=== PATIENT | male | born 1990 | race Caucasian/White ===

== ENCOUNTER 2016-11-06 08:55 | Emergency (ER) | payer OTHER ==
--- NOTE | ~2016-11-06 | CR72 ---
[facility] A Service of [facility] RADIOLOGY TEXT RESULTS PATIENT: KAREEM MADSEN LOCATION: [facility] : 90 UNIT #: [id number] AGE: [address]: Felix Gibson MD SEX: M ORDER DR: [id number] [facility] [address] [place], [place] [address] [id number] P MR#: [id number] Acc #: [id number] NAME: KAREEM MADSEN : 1990 SEX: M STUDY DATE/TIME: 11/06/2016 6:36 UNIT: [facility] ROOM: STUDY DESCRIPTION: CR Chest Single View Portable Ordering Physician: Ed Doctor [id number] Loida hoda MEDICAL IMAGING REPORT This report is preliminary unless electronic signature is present EXAM Portable chest INDICATION Recurring chest pain and shortness of air which is worse this morning. FINDINGS A portable view of the chest was obtained. The heart size and vascularity are normal. The lungs are clear. The bones are unremarkable. IMPRESSION No active disease. Dictated by... Jorge Medel M.D. THIS IS AN ELECTRONICALLY VERIFIED REPORT Jorge Medel M.D. at 11/06/2016 11:44 AM Andrew TD: 11/06/2016 07:54 JOB #: [id number] MEDICAL IMAGING REPORT Page 1 of 1 COPY
--- NOTE | ~2016-11-06 | EKG ---
PATIENT: KAREEM MADSEN UNIT #: [id number] Ventricular Rate: 75 BPM Atrial Rate: 75 BPM P-R Interval: 152 ms QRS Duration: 92 ms Q-T Interval: 370 ms QTC Calculation(Bezet): 413 ms P [place]: 39 degrees Calculated R [place]: 45 degrees Calculated T [place]: 36 degrees Diagnosis Line: Normal sinus rhythm Diagnosis Line: Normal ECG Diagnosis Line: Diagnosis Line: Confirmed by AINSLEY BETTENCOURT MD ([id number]) on 11/06/2016 Diagnosis Line: 10:16:26 PM INTERPRETING MD: RUT HENDERSON
[2016-11-06 08:51] LABS: BASOPHIL# 0.1 X10e3 (0-0.3); BASOPHIL% 0.6 % (0-2.5); EOSINOPHIL# 0.2 X10e3 (0-0.7); EOSINOPHIL% 1.8 % (0.0-7.0); HEMATOCRIT 43.2 % (38.0-50.0); HEMOGLOBIN 14.1 gm/dL (13.0-16.0); LYMPHOCYTE# 2.2 X10e3 (1.0-3.5); LYMPHOCYTE% 22.5 % (17.0-45.0); MEAN CORPUSCULAR HEMOGLOBIN 27.7 PG (28-34); MEAN CORPUSCULAR HGB CONC 32.6 g/dL (30-36); MEAN PLATELET VOLUME 7.4 FL (6.5-11.5); MONOCYTE% 9.7 % (3.0-12.0); NEUTROPHIL# 6.4 X10e3 (1.5-7.1); NEUTROPHIL% 65.4 % (40-75); PLATELET COUNT 315 X10e3 (140-420); RED BLOOD COUNT 5.09 X10e (3.90-5.60); RED CELL DISTRIBUTION WIDTH 13.4 % (11.0-15.5); WHITE BLOOD COUNT 9.8 X10e3 (4.0-10.5)
[2016-11-06 08:52] LABS: DIFF IND NO
[2016-11-06 09:18] LABS: ALBUMIN SERUM 4.6 g/dL (3.5-5.0); BILIRUBIN, DIRECT 0.1 mg/dL (0.0-0.2); BILIRUBIN,INDIRECT 0.8 mg/dL (0.0-0.9); BILIRUBIN,TOTAL 0.9 mg/dL (0.2-2.0); BUN/CREATININE RATIO 13.33; CALCIUM SERUM 9.4 mg/dL (8.4-10.2); CREATININE SERUM 0.9 mg/dL (0.6-1.4); GLOM FILT RATE Estimated 117.5 mL/min (>60); POTASSIUM 3.7 mmol/L (3.5-5.1)
== END 2016-11-06 09:43 | disposition home or self-care (01) ==
LOC: CED 08:55
DX: M54.6 Pain in thoracic spine (principal); J45.909 Unspecified asthma, uncomplicated
CPT/HCPCS: 36415; 71010; 80048; 80076; 85025; 93005; 99284

== ENCOUNTER 2016-12-15 04:45 | Emergency (ER) | payer OTHER ==
--- NOTE | ~2016-12-15 | EKG ---
PATIENT: KAREEM COULTER UNIT #: [id number] Ventricular Rate: 77 BPM Atrial Rate: 77 BPM P-R Interval: 156 ms QRS Duration: 86 ms Q-T Interval: 366 ms QTC Calculation(Bezet): 414 ms P [place]: 59 degrees Calculated R [place]: 53 degrees Calculated T [place]: 47 degrees Diagnosis Line: Normal sinus rhythm Diagnosis Line: Normal ECG Diagnosis Line: When compared with ECG of 06-NOV-2016 06:19, Diagnosis Line: No significant change was found Diagnosis Line: Confirmed by GEORGIA HAGER MD ([id number]) on Diagnosis Line: 12/15/2016 4:31:20 PM INTERPRETING MD: ALLEY HENDERSON
--- NOTE | ~2016-12-15 | CR72 ---
[facility] A Service of [facility] RADIOLOGY TEXT RESULTS PATIENT: KAREEM COULTER LOCATION: [facility] : 90 UNIT #: [id number] AGE: [address]: Daniel Reynoso DO SEX: M ORDER DR: [id number] [facility] [address] [place], [place] [address] [id number] E MR#: [id number] Acc #: [id number] NAME: KAREEM COULTER : 1990 SEX: M STUDY DATE/TIME: 12/15/2016 6:45 UNIT: [facility] ROOM: STUDY DESCRIPTION: CR Chest Single View Portable Attending Physician: Daniel Reynoso D.O. Ordering Physician: Daniel Reynoso D.O. Primary Care Physician: No Primary Care Physician MEDICAL IMAGING REPORT This report is preliminary unless electronic signature is present EXAM Portable chest, 12/15/2016. HISTORY 26-year-old male with shortness of air and chest pain beginning last night. COMPARISON Chest, 11/06/2016. FINDINGS Frontal chest demonstrates clear lungs. No pleural effusion or pneumothorax. Heart size and mediastinum are within normal limits. Pulmonary vasculature unremarkable. IMPRESSION No acute cardiopulmonary findings. Dictated by... Graham Herrera M.D. THIS IS AN ELECTRONICALLY VERIFIED REPORT Graham Herrera M.D. at 12/16/2016 6:19 AM BARRON/liliana TD: 12/15/2016 09:25 JOB #: [id number] MEDICAL IMAGING REPORT Page 1 of 1 COPY
--- NOTE | ~2016-12-15 | CT71 ---
[facility] A Service of [facility] RADIOLOGY TEXT RESULTS PATIENT: KAREEM COULTER LOCATION: [facility] : 89 UNIT #: [id number] AGE: [address]: Daniel Reynoso DO SEX: M ORDER DR: [id number] [place] [id number] [facility]. [place], [place] [address] [id number] E MR#: [id number] Acc #: [id number] NAME: KAREEM COULTER : 1990 SEX: M STUDY DATE/TIME: 12/15/2016 7:52 UNIT: [facility] ROOM: STUDY DESCRIPTION: CT Head Wo Contrast Attending Physician: Daniel Reynoso D.O. Ordering Physician: Daniel Reynoos D.O. Primary Care Physician: No Primary Care Physician MEDICAL IMAGING REPORT This report is preliminary unless electronic signature is present EXAM CT head without contrast, 12/15/2016. HISTORY 26-year-old male with dizziness beginning last night. COMPARISON None. TECHNIQUE Routine unenhanced axial images performed through the brain. This CT exam was performed with one or more of the following radiation dose reduction techniques: automatic exposure control, adjustment of mA and/or kV according to patient size, and iterative reconstruction. FINDINGS No hemorrhage, acute infarction, mass lesion, or abnormal extraaxial fluid collection. No midline shift or focal mass effect. Ventricular system normal in size and configuration. No acute bony abnormality. Visualized paranasal sinuses and mastoid air cells are clear. IMPRESSION Negative unenhanced head CT. Dictated by... Graham Herrera M.D. THIS IS AN ELECTRONICALLY VERIFIED REPORT Graham Herrera M.D. at 12/16/2016 6:20 AM JKB/tmw [facility] A Service of [facility] RADIOLOGY TEXT RESULTS PATIENT: KAREEM COULTER LOCATION: [facility] : 90 UNIT #: [id number] AGE: [address]: Hottman,Daniel M DO SEX: M ORDER DR: TD: 12/15/2016 09:39 JOB #: [id number] MEDICAL IMAGING REPORT Page 1 of 1 COPY
[2016-12-15 07:22] LABS: BASOPHIL% 0.3 % (0-2.5); EOSINOPHIL# 0.1 X10e3 (0-0.7); EOSINOPHIL% 0.4 % (0.0-7.0); HEMATOCRIT 41.9 % (38.0-50.0); HEMOGLOBIN 13.6 gm/dL (13.0-16.0); LYMPHOCYTE# 1.4 X10e3 (1.0-3.5); LYMPHOCYTE% 10.8 % (17.0-45.0); MEAN CORPUSCULAR HEMOGLOBIN 27.3 PG (28-34); MEAN CORPUSCULAR HGB CONC 32.5 g/dL (30-36); MEAN PLATELET VOLUME 8.1 FL (6.5-11.5); MONOCYTE# 0.9 X10e3 (0-1.0); MONOCYTE% 6.9 % (3.0-12.0); NEUTROPHIL# 10.7 X10e3 (1.5-7.1); NEUTROPHIL% 81.6 % (40-75); PLATELET COUNT 253 X10e3 (140-420); RED BLOOD COUNT 4.99 X10e (3.90-5.60); RED CELL DISTRIBUTION WIDTH 13.3 % (11.0-15.5); WHITE BLOOD COUNT 13.2 X10e3 (4.0-10.5)
[2016-12-15 07:32] LABS: DIFF IND NO; INR 1.1; PARTIAL THROMBOPLASTIN TIME 28.2 SECONDS (23.5-31.3); PROTHROMBIN TIME (PATIENT) 11.3 SECONDS (9.6-11.5)
[2016-12-15 07:51] LABS: ALBUMIN SERUM 4.3 g/dL (3.5-5.0); BILIRUBIN, DIRECT 0.1 mg/dL (0.0-0.2); BILIRUBIN,INDIRECT 0.5 mg/dL (0.0-0.9); BILIRUBIN,TOTAL 0.6 mg/dL (0.2-2.0); CALCIUM SERUM 9.2 mg/dL (8.4-10.2); CREATININE SERUM 0.8 mg/dL (0.6-1.4); GLOM FILT RATE Estimated 123.3 mL/min (>60); PROTEIN TOTAL SERUM 7.3 g/dL (6.0-8.3)
[2016-12-15 08:24] LABS: URINE SOURCE CLEAN CATCH
[2016-12-15 08:31] LABS: URINE APPEARANCE CLEAR; URINE BILIRUBIN NEG (NEG); URINE BLOOD NEG (NEG); URINE COLOR YELLOW; URINE GLUCOSE NEG (NEG); URINE KETONE TRACE (NEG); URINE LEUKOCYTE ESTERASE NEG (NEG); URINE NITRATE NEG (NEG); URINE PH 7.5 (5-8); URINE PROTEIN NEG (NEG); URINE UROBILINOGEN 0.2 MG/DL (NEG)
[2016-12-15 08:31] LABS: POC - CKMB <1.0 ng/mL (0.0-7.9); POC - TROPONIN <0.05 ng/mL (<=0.05)
[2016-12-15 08:34] LABS: CULTURE INDICATED? NO
[2016-12-15 08:44] LABS: AMPHETAMINE NEG (NEG); BARBITURATES NEG (NEG); BENZODIAZEPINES NEG (NEG); COCAINE NEG (NEG); MARIJUANA NEG (NEG); OPIATES NEG (NEG); TRICYCLIC ANTIDEPRESSANTS NEG (NEG); U METHADONE NEG (NEG)
[2016-12-15 11:46] LABS: POC - CKMB <1.0 ng/mL (0.0-7.9); POC - TROPONIN <0.05 ng/mL (<=0.05)
== END 2016-12-15 12:58 | disposition home or self-care (01) ==
LOC: CED 04:45
PROVIDERS: Emergency Medicine
DX: R07.9 Chest pain, unspecified (principal); R42 Dizziness and giddiness
CPT/HCPCS: 36415; 70450; 71010; 80048; 80076; 80307; 81003; 82553; 84484; 85025; 85379; 85610; 85730; 93005; 99284

== ENCOUNTER 2016-12-29 06:10 | Emergency (ER) | payer SELFPAY ==
--- NOTE | ~2016-12-29 | CR72 ---
[facility] A Service of [facility] & [facility] RADIOLOGY TEXT RESULTS PATIENT: KAREEM COULTER LOCATION: [facility] : 90 UNIT #: [id number] AGE: [address]: Delmy Mccall MD SEX: M ORDER DR: [id number] [facility] [address]. [place], [place] [address] [id number] E MR#: [id number] Acc #: [id number] NAME: KAREEM COULTER : 1990 SEX: M STUDY DATE/TIME: 12/29/2016 6:32 UNIT: [facility] ROOM: STUDY DESCRIPTION: CR Chest Single View Portable Attending Physician: Delmy Mccall M.D. Ordering Physician: Delmy Mccall M.D. Primary Care Physician: No Primary Care Physician MEDICAL IMAGING REPORT This report is preliminary unless electronic signature is present EXAM Portable chest. INDICATION Suggested back pain since last night. Asthma history. COMPARISON 12/15/16. FINDINGS A portable view of the chest is obtained. The heart size and vascularity are normal, and the lungs are clear, and the bones are unremarkable. IMPRESSION No active disease. Dictated by... Jorge Medel M.D. THIS IS AN ELECTRONICALLY VERIFIED REPORT Jorge Medel M.D. at 12/30/2016 7:02 AM ERVIN/vanessa TD: 12/29/2016 15:05 JOB #: [id number] MEDICAL IMAGING REPORT Page 1 of 1 COPY
--- NOTE | ~2016-12-29 | EKG ---
PATIENT: KAREEM COULTER UNIT #: [id number] Ventricular Rate: 55 BPM Atrial Rate: 55 BPM P-R Interval: 116 ms QRS Duration: 88 ms Q-T Interval: 408 ms QTC Calculation(Bezet): 390 ms P [place]: 26 degrees Calculated R [place]: 10 degrees Calculated T [place]: 7 degrees Diagnosis Line: Sinus bradycardia with marked sinus arrhythmia Diagnosis Line: Otherwise normal ECG Diagnosis Line: When compared with ECG of 15-DEC-2016 04:51, Diagnosis Line: T wave inversion now evident in Inferior leads Diagnosis Line: Confirmed by SCOTT WALKER MD ([id number]) on Diagnosis Line: 12/29/2016 2:03:16 PM INTERPRETING MD: THA
[2016-12-29 06:56] LABS: BASOPHIL# 0.1 X10e3 (0-0.3); BASOPHIL% 0.5 % (0-2.5); DIFF IND YES; EOSINOPHIL% 0.2 % (0.0-7.0); HEMATOCRIT 43.6 % (38.0-50.0); HEMOGLOBIN 14.2 gm/dL (13.0-16.0); LYMPHOCYTE# 1.2 X10e3 (1.0-3.5); LYMPHOCYTE% 7.5 % (17.0-45.0); MEAN CELL VOLUME 83.8 FL (83-96); MEAN CORPUSCULAR HEMOGLOBIN 27.2 PG (28-34); MEAN CORPUSCULAR HGB CONC 32.5 g/dL (30-36); MEAN PLATELET VOLUME 7.3 FL (6.5-11.5); MONOCYTE# 0.8 X10e3 (0-1.0); MONOCYTE% 4.9 % (3.0-12.0); NEUTROPHIL# 13.7 X10e3 (1.5-7.1); NEUTROPHIL% 86.9 % (40-75); PLATELET COUNT 344 X10e3 (140-420); RED BLOOD COUNT 5.21 X10e (3.90-5.60); RED CELL DISTRIBUTION WIDTH 13.4 % (11.0-15.5); WHITE BLOOD COUNT 15.7 X10e3 (4.0-10.5)
[2016-12-29 06:57] LABS: POC - CKMB <1.0 ng/mL (0.0-7.9); POC - TROPONIN <0.05 ng/mL (<=0.05)
[2016-12-29 07:16] LABS: ALBUMIN SERUM 4.9 g/dL (3.5-5.0); ALKALINE PHOSPHATASE 58 U/L (32-92); ALT (SGPT) 34 U/L (10-40); AST (SGOT) 24 U/L (10-42); BILIRUBIN, DIRECT 0.1 mg/dL (0.0-0.2); BILIRUBIN,INDIRECT 0.7 mg/dL (0.0-0.9); BILIRUBIN,TOTAL 0.8 mg/dL (0.2-2.0); BLOOD UREA NITROGEN 14 mg/dL (9-23); CALCIUM SERUM 9.5 mg/dL (8.4-10.2); CARBON DIOXIDE 25 mmol/L (22-31); CHLORIDE 102 mmol/L (100-111); CREATININE SERUM 0.8 mg/dL (0.6-1.4); GLOM FILT RATE Estimated 123.3 mL/min (>60); GLUCOSE FASTING 139 mg/dL (70-110); LIPASE 21 U/L (22-51); POTASSIUM 3.2 mmol/L (3.5-5.1); SODIUM 137 mmol/L (135-145)
[2016-12-29 07:18] LABS: ALCOHOL BLOOD <5 mg/dL (0)
[2016-12-29 07:51] LABS: PLATELET ESTIMATE NORMAL (NORMAL); RBC NORMAL YES
[2016-12-29 07:57] LABS: URINE SOURCE CLEAN CATCH
[2016-12-29 08:04] LABS: URINE APPEARANCE CLEAR; URINE BILIRUBIN NEG (NEG); URINE BLOOD NEG (NEG); URINE COLOR YELLOW; URINE GLUCOSE NEG (NEG); URINE KETONE 1+ (NEG); URINE LEUKOCYTE ESTERASE NEG (NEG); URINE NITRATE NEG (NEG); URINE PH 7.5 (5-8); URINE PROTEIN TRACE (NEG); URINE SPECIFIC GRAVITY 1.026 (1.003-1.035)
[2016-12-29 08:09] LABS: CULTURE INDICATED? NO
[2016-12-29 08:14] LABS: AMPHETAMINE NEG (NEG); BARBITURATES NEG (NEG); BENZODIAZEPINES NEG (NEG); COCAINE NEG (NEG); MARIJUANA NEG (NEG); OPIATES NEG (NEG); TRICYCLIC ANTIDEPRESSANTS NEG (NEG); U METHADONE NEG (NEG)
== END 2016-12-29 08:43 | disposition home or self-care (01) ==
LOC: CED 06:10
PROVIDERS: Student in an Organized Health Care Education/Training Program
DX: R07.89 Other chest pain (principal); M54.6 Pain in thoracic spine; Z87.891 Personal history of nicotine dependence
CPT/HCPCS: 36415; 71010; 80048; 80076; 80307; 81003; 82553; 83690; 84484; 85025; 93005; 99284; G0480

== ENCOUNTER 2017-01-06 11:14 | Emergency (ER) | payer SELFPAY | END 2017-01-06 14:06 | disposition home or self-care (01) | LOC: CED 11:14 | DX: M62.830 Muscle spasm of back (principal) | CPT/HCPCS: 99283 ==